=== PATIENT | male | born 1950 | race Caucasian/White ===

== ENCOUNTER → 2018-03-29 | Emergency (ER) | payer OTHER ==
[~2018-03-29] VITALS: Ht 182.9 cm; Wt 95.3 kg
[~2018-03-29] MED LIST: ALBUTEROL/IPRATROPIUM 3 ML NEB NEB ONE; AMLODIPINE BESYL5 MG PO; HYDROCODONE/APAP 5MG-325MG TAB PO NR; IOPAMIDOL 370 MG/ML 200 ML INFUS..BTL INJ ONE; LEVOFLOXACIN 750MG/D5W 150ML 150 ML IV SCH; METFORMIN HCL1000 MG PO; SODIUM CHLORIDE 0.9% 50ML 50 ML ONE; TAMSULOSIN HCL0.4 MG PO; VITAMIN D250000 UNIT PO
--- OUTSIDE RECORDS SUMMARY | 2018-03-29 12:01 | XMS REPORT | Continuity of Care Document ---
Author Author [facility] Organization [facility] Address [address] [place] [address] ;ext= Care Team Providers Care Hogshead Builder Name Role Phone HERRERAMARIELA Admphys MARIELA HERRERA [facility] Admission Diagnosis Code Admission Diagnosis Date [id number] Low back pain Social History Element Description Code Description Smoking Status Code System Start Date End Date Smoking Status [id number] Unknown if ever smoked SNOMED-CT Problems * No data in the system Medications SNOMED CT Description [id number] Drug Treatment Unknown Allergies * No Allergy Information Available Results Laboratory Results Order: CBC PLATELET AUTO DIFF Specimen Source: BLOOD Body Site: [facility] Test Result Flag Range Unit Date 25234-3 1Leukocytes^^corrected for nucleated erythrocytes:NCnc:Pt:Bld:Qn:Automated count 9.54 4.80-10.80 10^3/ul 01/18/2018 23:28 789-8 1Erythrocytes:NCnc:Pt:Bld:Qn:Automated count 4.56 L 4.70-6.10 10^6/ul 01/18/2018 23:28 718-7 1Hemoglobin:MCnc:Pt:Bld:Qn 12.7 L 14.0-18.0 gm/dl 01/18/2018 23:28 4544-3 1Hematocrit:VFr:Pt:Bld:Qn:Automated count 39.4 L 42.0-50.0 % 01/18/2018 23:28 787-2 1Erythrocyte mean corpuscular volume:EntVol:Pt:RBC:Qn:Automated count 86.4 80.0-94.0 fL 01/18/2018 23:28 785-6 1Erythrocyte mean corpuscular hemoglobin:EntMass:Pt:RBC:Qn:Automated count 27.9 27.0-31.0 pg 01/18/2018 23:28 786-4 1Erythrocyte mean corpuscular hemoglobin concentration:MCnc:Pt:RBC:Qn:Automated count 32.2 L 33.0-37.0 gm/dl 01/18/2018 23:28 788-0 1Erythrocyte distribution width:Ratio:Pt:RBC:Qn:Automated count 13.7 11.5-14.5 % 01/18/2018 23:28 777-3 1Platelets:NCnc:Pt:Bld:Qn:Automated count 257 130-400 10^3/ul 01/18/2018 23:28 21056-7 1Platelet mean volume:EntVol:Pt:Bld:Qn:Automated count 10.6 A 7.4-10.4 fL 01/18/2018 23:28 Note: 'NOT MEASURED' RESULTS ARE DISPLAYED WHEN THE INSTRUMENT HAS A SUPPRESSED OR UNREPORTABLE RESULT. THIS WILL MOST OFTEN HAPPEN WITH THE MPV WHEN THERE IS AN ABNORMAL PLATELET DISTRIBUTION DUE TO A CRITICAL LOW VALUE OR PLATELET CLUMPING. THE RDW MAY BE SUPPRESSED IF THERE ARE MULTIPLE PEAKS PRESENT ON THE RBC HISTOGRAM. IN THIS CASE, A MANUAL REVIEW OF THE SLIDE WILL BE PERFORMED, AND RBC MORPHOLOGY WILL BE NOTED ON THE REPORT. 770-8 1Neutrophils/100 leukocytes:NFr:Pt:Bld:Qn:Automated count 78.4 H 42.0-75.0 % 01/18/2018 23:28 736-9 1Lymphocytes/100 leukocytes:NFr:Pt:Bld:Qn:Automated count 12.4 L 13.0-42.0 % 01/18/2018 23:28 5905-5 1Monocytes/100 leukocytes:NFr:Pt:Bld:Qn:Automated count 6.5 4.0-14.0 % 01/18/2018 23:28 713-8 1Eosinophils/100 leukocytes:NFr:Pt:Bld:Qn:Automated count 2 1.0-5.0 % 01/18/2018 23:28 706-2 1Basophils/100 leukocytes:NFr:Pt:Bld:Qn:Automated count 0.3 0.0-3.0 % 01/18/2018 23:28 1IG% 0.4 0.0-0.4 % 01/18/2018 23:28 1NRBC, Auto 0 0-2 /100WBC 01/18/2018 23:28 * Performing Lab Footnotes:* [address] [place] [address] - [id number] - [address] [facility] [facility] [address] [facility] [place] [address] [facility] - MD: DIRECTOR FLAKITA BARKER Order: CMP COMPREHENSIVE METABOLIC PANEL Specimen Source: BLOOD Body Site: [facility] Test Result Flag Range Unit Date 2950-03 1Sodium:SCnc:Pt:Ser/Plas:Qn 140 137-145 mmol/l 01/18/2018 23:28 2823-3 1Potassium:SCnc:Pt:Ser/Plas:Qn 4 3.5-5.1 mmol/l 01/18/2018 23:28 5-0 1Chloride:SCnc:Pt:Ser/Plas:Qn 106 98-107 mmol/l 01/18/2018 23:28 74517-3 1Calcium:MCnc:Pt:Ser/Plas:Qn 8.6 8.5-10.1 mg/dl 01/18/2018 23:28 8-9 1Carbon dioxide:SCnc:Pt:Ser/Plas:Qn 26 21-32 mmol/l 01/18/2018 23:28 0-7 1Glucose:MCnc:Pt:Urine:Qn 145 H 74-106 mg/dl 01/18/2018 23:28 3094-0 1Urea nitrogen:MCnc:Pt:Ser/Plas:Qn 13 7.0-18.0 mg/dl 01/18/2018 23:28 2160-0 1Creatinine:MCnc:Pt:Ser/Plas:Qn 1.2 0.5-1.3 mg/dl 01/18/2018 23:28 2885-2 1Protein:MCnc:Pt:Ser/Plas:Qn 7.8 6.4-8.2 gm/dl 01/18/2018 23:28 1751-7 1Albumin:MCnc:Pt:Ser/Plas:Qn 3.1 L 3.4-5.0 gm/dl 01/18/2018 23:28 1A/G Ratio 0.7 L 1.1-2.2 % 01/18/2018 23:28 1920-8 1Aspartate aminotransferase:CCnc:Pt:Ser/Plas:Qn 11 L 15-37 U/L 01/18/2018 23:28 1742-6 1Alanine aminotransferase:CCnc:Pt:Ser/Plas:Qn 14 13-61 U/L 01/18/2018 23:28 6768-6 1Alkaline phosphatase:CCnc:Pt:Ser/Plas:Qn 97 45-117 U/L 01/18/2018 23:28 1975-2 1Bilirubin:MCnc:Pt:Ser/Plas:Qn 0.3 0.2-1.0 mg/dl 01/18/2018 23:28 1Globulin 4.7 H 2.3-3.5 gm/dl 01/18/2018 23:28 1Calcium, Corrected 9.3 8.4-10.2 mg/dl 01/18/2018 23:28 Note: Various formulas exist for corrected serum calcium results, each yielding different values. This corrected result was based on the formula: Corrected Calcium=SerumCalcium + [0.8 * ( 4 - SerumAlbumin)] 1EGFR if >60 mL/min/1.73m^2 01/18/2018 23:28 1EGFR if Non- >60 mL/min/1.73m^2 01/18/2018 23:28 Note: Estimated Glomerular Filtration Rate (eGFR) Reference Intervals Decision Points for 18 years and older and average body mass: >=60 Does not exclude kidney disease. 30 - 59 Suggests moderate chronic kidney disease and indicates the need for further investigation including assessment of proteinuria and cardiovascular factors. < 30 Usually indicates a need for referral for assessment and management of chronic kidney failure. * Performing Lab Footnotes:* [address] [place] [address] - [id number] - [address] [facility] [address] [place] [address] [address] Camejo MD: DIRECTOR FLAKITA BARKER Order: PROTIME PT INR Specimen Source: BLOOD Body Site: [facility] Test Result Flag Range Unit Date 5901-03 1Coagulation tissue factor induced:Time:Pt:PPP:Qn:Coag 11.1 9.0-11.9 seconds 01/18/2018 23:28 6301-6 1Coagulation tissue factor induced.INR:RelTime:Pt:PPP:Qn:Coag 1.1 0.9-1.1 01/18/2018 23:28 Note: INR results are intended ONLY to monitor Oral Anticoagulant therapy in stablized patients. The INR Therapeutic Range is 2.0 - 3.0 Patients with a mechanical heart, the INR Range is 2.5 - 3.5 * Performing Lab Footnotes:* [address] [place] [address] - [id number] - [address] [facility] [address] [place] [address] SOCRATES Camejo MD: DIRECTOR FLAKITA BARKER Order: PTT PARTIAL THROMBOPLASTIN TM Specimen Source: BLOOD Body Site: [facility] Test Result Flag Range Unit Date 06025-7 1Coagulation surface induced:Time:Pt:PPP:Qn:Coag 26.8 23.0-33.0 seconds 01/18/2018 23:28 * Performing Lab Footnotes:* [address] [place] [address] - [id number] - [address] [facility] [address] [place] [address] [facility] - MD: DIRECTOR FLAKITA BARKER Order: UA URINALYSIS WITH MICROSCOPY Specimen Source: URINE SPECIMENS Body Site: LOINC Test Result Flag Range Unit Date 5777-07 1Color:Type:Pt:Urine:Nom Red 01/18/2018 23:28 5767-9 1Appearance:Aper:Pt:Urine:Nom Cloudy 01/18/2018 23:28 2349-9 1Glucose:ACnc:Pt:Urine:Ord 100 A NEGATIVE 01/18/2018 23:28 5770-3 1Bilirubin:ACnc:Pt:Urine:Ord:Test strip Small A NEGATIVE 01/18/2018 23:28 2514-8 1Ketones:ACnc:Pt:Urine:Ord:Test strip TRACE A NEGATIVE 01/18/2018 23:28 5811-5 1Specific gravity:Rden:Pt:Urine:Qn:Test strip >=1.030 A 1.005-1.030 01/18/2018 23:28 5794-3 1Hemoglobin:ACnc:Pt:Urine:Ord:Test strip Large A NEGATIVE 01/18/2018 23:28 5803-2 1pH:LsCnc:Pt:Urine:Qn:Test strip 6.0 A 4.5-8.0 01/18/2018 23:28 47162-9 1Protein:ACnc:Pt:Urine:Ord:Test strip NEGATIVE NEGATIVE 01/18/2018 23:28 5818-0 1Urobilinogen:ACnc:Pt:Urine:Ord:Test strip 0.2 0.2 01/18/2018 23:28 5802-4 1Nitrite:ACnc:Pt:Urine:Ord:Test strip NEGATIVE NEGATIVE 01/18/2018 23:28 5799-2 1Leukocyte esterase:ACnc:Pt:Urine:Ord:Test strip NEGATIVE NEGATIVE 01/18/2018 23:28 5821-4 1Leukocytes:Naric:Pt:Urine sed:Qn:Microscopy.light.HPF None Seen A 0-5 01/18/2018 23:28 70432-1 1Erythrocytes:Naric:Pt:Urine sed:Qn:Microscopy.light.HPF 75-100 A 0-5 01/18/2018 23:28 59089-8 1Epithelial cells.squamous:Naric:Pt:Urine sed:Qn:Microscopy.light.HPF None Seen A 0-10 01/18/2018 23:28 8247-9 1Mucus:ACnc:Pt:Urine sed:Ord:Microscopy.light None Seen None Seen 01/18/2018 23:28 5769-5 1Bacteria:Naric:Pt:Urine sed:Qn:Microscopy.light.HPF Trace None Seen,Trace 01/18/2018 23:28 * Performing Lab Footnotes:* [address] [place] [address] [id number] - [address] [place] [address] [facility] - MD: DIRECTOR FLAKITA BARKER Radiology Results Order: [id number] CT ABDOMEN W/WO CONTRAST* Exam Completion Date:01/18/2018 00:50 Procedure: CT ABDOMEN AND PELVIS W/WO CONTRAST Order Date: 01/18/2018 12:50 AMOrdering Provider: MARIELA Vazquezinical Indication: [id number]: B lood in urineComparison: NoneTechnique: Using a helical scanner, sequential axi al imaging of the abdomen andpelvis were obtained following the administration o f oral contrast and beforeand after IV contrast. The exam extended from the leve l of the lung basessuperiorly to the level of the pubic symphysis inferiorly. De layed imagesthrough the renal collecting systems, ureters, and bladder were obta ined. 2-Dsagittal and coronal reconstructed images were obtained.This exam was performed according to the departmental dose-optimization programwhich includes automated exposure control, adjustment of the mA and/or kVaccording to patient s ize and/or use of iterative reconstruction techniques.Findings: Irregular, solid , noncalcified nodule in the posterior basilar segment of theright lower lobe me asuring 1.2 cm in diameter.5 mm calcified granuloma in the lateral basilar segme nt of the right lower lobe.The liver is normal in size and density. Hepatic cont our is normal. There are nohepatic masses. No intrahepatic ductal dilatation.The gallbladder is normal in size and density. There is no evidence ofcholelithiasis or cholecystitis by CT criteria.The spleen is normal in size and density. There are no intrinsic splenic masses.There is no evidence of a subcapsular hematoma or fluid collection.The pancreas is normal in size and density. There are no pa ncreatic masses.Multiple millimetric calcifications in the uncinate process, he ad, neck of thepancreas consistent with chronic pancreatitis.There is no pancrea tic ductal dilatation.The right adrenal gland has a normal appearance.There is a solid mass arising from the medial limb of the left adrenal glandwhich measures 1.8 cm in diameter.This has a precontrast Hounsfield density of 6, an immediate postcontrastHounsfield density of 50 in a delayed contrast density of 22.The ab solute washout is 63%. The relative washout is 56%.These values correlate with a benign adrenal adenoma.The right kidney is normal in size and shape. The renal cortical enhancement is normal. There are no calculi, masses, or hydronephrosis. Delayed images of the renal collecting system demonstrates no filling defectswi thin the collecting system. The ureter has a normal appearance without obstruct ion. The left kidney is enlarged with heterogeneous enhancement involving thein terpolar and inferior pole region. This is ill-defined but there is a morefocal hypodense area in the inferior pole which measures 4.7 x 5.8 x 5.3 cm inAP, cran iocaudad, and transverse dimensions.There is increased density within the left r enal pelvis and ureter consistentwith blood (hematuria).There is a filling defec t within the inferior division of the left renal vein atthe renal hilum suspicio us for tumor thrombus.There is no left renal calculus, ureteral calculus, or hyd ronephrosis.There is no soft tissue thrombus within the main left renal vein or IVC.The left renal vein is noted to be retroaortic. There is a Amin catheter wi thin the urinary bladder. The bladder is not welldistended and not well evaluate d.The prostate gland is normal in size. Aorta is normal in size and diameter. Th ere is no aneurysm. The IVC is normal insize and location.There is no lymphadeno yuliana in the abdomen, pelvis, or either inguinal region.There is no small or lar ge bowel distention. There is no bowel thickening. Thereare no inflammatory cates ges in the abdomen or pelvis.The appendix is visualized and normal in diameter. There is no periappendicealsoft tissue stranding. No CT findings of appendicitis .No inguinal masses.There is no skeletal lesion.IMPRESSION: 1. Heterogeneous enh ancement involving the interpolar and inferior pole regionof the left kidney wit h suspicion for a hypodense mass involving the inferiorpole. This measures 5.8 c m in maximum diameter. There is also suspicion fortumor thrombus within the infe rior division of the left renal vein at the hilum.The main left renal vein is pa tent without thrombus and is noted to beretroaortic in location. The IVC is free of tumor thrombus. Preliminary reportsuggested suspicion for pyelonephritis. Th is is not completely excluded from thedifferential diagnosis but is less likely considering the presence of tumorthrombus in the left renal vein at the hilum an d a right lower lobe pulmonarynodule suspicious for metastatic disease.2. Hyperd ensity within the left renal pelvis and ureter consistent withhematuria.3. Amin catheter decompresses the bladder which is not well evaluated.4. No abnormality involving the right kidney.5. 2 cm left adrenal adenoma.6. No other evidence for metastatic disease in the abdomen or pelvis.7. Preliminary report which did not suggest neoplasm was discussed by Dr. Antony Loredo to the emergency room provide r.8. I discussed the additional findings with Dr. Garcia in the emergency room onJanuary 20, 2018 at 11 AM. Recommend urology consultation.This final report w as electronically signed by Dr Chepe Mann MD 01/20/201811:31 AMDictated By: CHEPE MANNDate: 01/20/2018 11:31 Vital Signs * No data in the system Advance Directives Patient does NOT have Living Will Directive Type Effective Date Director [employer] Notes Supporting Document Name Address Phone No Directive Type specified 01/19/2018 11:15 Not Specified Not Specified Not Specified None No Family History * No Data Reported Plan of Care * No data in the system Procedures Code Code System Procedure Name Target Site Date of Procedure CT ABDOMEN W/WO CONTRAST 01/20/2018 11:38 99997 CPT4 PYELOTOMY W/REMOVAL CALCULUS Encounters Date Code Diagnosis Status (ICD10) - N059 UNS NEPHRIT SYND UNS MORPHOLOG [facility] Active Immunizations * No data in the system Functional Status * No data in the system Hospital Discharge Instructions * No data in the system
--- OUTSIDE RECORDS SUMMARY | 2018-03-29 12:01 | XMS REPORT ---
Author Author [facility] Address Unknown Phone Unavailable Care Team Providers Care Washer Engineer Helper Name Role Phone DENI HERRERA Unavailable Unavailable Problems This patient has no known problems. Allergies, Adverse Reactions, Alerts This patient has no known allergies or adverse reactions. Medications This patient has no known medications. Results Test Description Test Time Test Comments Text Results Atomic Results Result Comments CT ABDOMEN W/WO CONTRAST 2018-01-20 11:38:17 NPO 4 hours. Do not withhold meds Procedure: CT ABDOMEN AND PELVIS W/WO CONTRASTOrder Date: 01/18/2018 12:50 AMOrdering Provider: MARIELA HERRERAClinical Indication: [id number]: Blood in urineComparison: NoneTechnique: Using a helical scanner, sequential axial imaging of the abdomen andpelvis were obtained following the administration of oral contrast and beforeand after IV contrast. The exam extended from the level of the lung basessuperiorly to the level of the pubic symphysis inferiorly. Delayed imagesthrough the renal collecting systems, ureters, and bladder were obtained. 2-Dsagittal and coronal reconstructed images were obtained.This exam was performed according to the departmental dose-optimization programwhich includes automated exposure control, adjustment of the mA and/or kVaccording to patient size and/or use of iterative reconstruction techniques.Findings:Irregular, solid, noncalcified nodule in the posterior basilar segment of theright lower lobe measuring 1.2 cm in diameter.5 mm calcified granuloma in the lateral basilar segment of the right lower lobe.The liver is normal in size and density. Hepatic contour is normal. There are nohepatic masses. No intrahepatic ductal dilatation.The gallbladder is normal in size and density. There is no evidence ofcholelithiasis or cholecystitis by CT criteria.The spleen is normal in size and density. There are no intrinsic splenic masses.There is no evidence of a subcapsular hematoma or fluid collection.The pancreas is normal in size and density. There are no pancreatic masses.Multiple millimetric calcifications in the uncinate process, head, neck of thepancreas consistent with chronic pancreatitis.There is no pancreatic ductal dilatation.The right adrenal gland has a normal appearance.There is a solid mass arising from the medial limb of the left adrenal glandwhich measures 1.8 cm in diameter.This has a precontrast Hounsfield density of 6, an immediate postcontrastHounsfield density of 50 in a delayed contrast density of 22.The absolute washout is 63%. The relative washout is 56%.These values correlate with a benign adrenal adenoma.The right kidney is normal in size and shape.The renal cortical enhancement is normal.There are no calculi, masses, or hydronep hrosis.Delayed images of the renal collecting system demonstrates no filling defectswithin the collecting system.The ureter has a normal appearance without obstruction.The left kidney is enlarged with heterogeneous enhancement involving theinterpolar and inferior pole region. This is ill-defined but there is a morefocal hypodense area in the inferior pole which measures 4.7 x 5.8 x 5.3 cm inAP, craniocaudad, and transverse dimensions.There is increased density within the left renal pelvis and ureter consistentwith blood (hematuria).There is a filling defect within the inferior division of the left renal vein atthe renal hilum suspicious for tumor thrombus.There is no left renal calculus, ureteral calculus, or hydronephrosis.There is no soft tissue thrombus within the main left renal vein or IVC.The left renal vein is noted to be retroaortic.There is a Amin catheter within the urinary bladder. The bladder is not welldistended and not well evaluated.The prostate gland is normal in size.Aorta is normal in size and diameter. There is no aneurysm. The IVC is normal insize and location.There is no lymphadenopathy in the abdomen, pelvis, or either inguinal region.There is no small or large bowel distention. There is no bowel thickening. Thereare no inflammatory changes in the abdomen or pelvis.The appendix is visualized and normal in diameter. There is no periappendicealsoft tissue stranding. No CT findings of appendicitis.No inguinal masses.There is no skeletal lesion.IMPRESSION:1. Heterogeneous enhancement involving the interpolar and inferior pole regionof the left kidney with suspicion for a hypodense mass involving the inferiorpole. This measures 5.8 cm in maximum diameter. There is also suspicion fortumor thrombus within the inferior division of the left renal vein at the hilum.The main left renal vein is patent without thrombus and is noted to beretroaortic in location. The IVC is free of tumor thrombus. Preliminary reportsuggested suspicion for pyelonephritis. This is not completely excluded from thedifferential diagnosis but is less likely considering the presence of tumorthrombus in the left renal vein at the hilum and a right lower lobe pulmonarynodule suspicious for metastatic disease.2. Hyperdensity within the left renal pelvis and ureter consistent withhematuria.3. Amin catheter decompresses the bladder which is not well evaluated.4. No abnormality involving the right kidney.5. 2 cm left adrenal adenoma.6. No other evidence for metastatic disease in the abdomen or pelvis.7. Preliminary report which did not suggest neoplasm was discussed by Dr. Antony Loredo to the emergency room provider.8. I discussed the additional findings with Dr. Garcia in the emergency room onJanuary 20, 2018 at 11 AM. Recommend urology consultation.This final report was electronically signed by Dr Chepe Mann MD 01/20/201811:31 AMDictated By: CHEPE MANN.Date: 01/20/2018 11:31 CBC WITH AUTO DIFF 2018-01-19 11:43:00 WBC (test code=WBC) 9.54 10\\S\\3/ul 4.80-10.80 RBC (test code=RBC) 4.56 10\\S\\6/ul 4.70-6.10 Hemoglobin (test code=HGB) 12.7 gm/dl 14.0-18.0 Hematocrit (test code=HCT) 39.4 % 42.0-50.0 MCV (test code=MCV) 86.4 fL 80.0-94.0 MCH (test code=MCH) 27.9 pg 27.0-31.0 MCHC (test code=MCHC) 32.2 gm/dl 33.0-37.0 RDW (test code=RDWVC) 13.7 % 11.5-14.5 Platelet (test code=PLT) 257 10\\S\\3/ul 130-400 MPV (test code=MPV) 10.6 fL 7.4-10.4 "NOT MEASURED" RESULTS ARE DISPLAYED WHEN THE INSTRUMENT HAS A SUPPRESSED OR UNREPORTABLE RESULT. THIS WILL MOST OFTEN HAPPEN WITH THE MPV WHEN THERE IS AN ABNORMAL PLATELET DISTRIBUTION DUE TO A CR ITICAL LOW VALUE OR PLATELET CLUMPING. THE RDW MAY BE SUPPRESSED IF THERE ARE MULTIPLE PEAKS PRESENT ON THE RBC HISTOGRAM. IN THIS CASE, A MANUAL REVIEW OF THE SLIDE WILL BE PERFORMED, AND RBC MORPHOLOGY WILL BE NOTED ON THE REPORT. NE% (test code=NE) 78.4 % 42.0-75.0 LY% (test code=LY) 12.4 % 13.0-42.0 MO% (test code=MO) 6.5 % 4.0-14.0 EO% (test code=EO) 2.0 % 1.0-5.0 BA% (test code=BA) 0.3 % 0.0-3.0 IG% (test code=IG%) 0.4 % 0.0-0.4 NRBC, Auto (test code=NRBC_AUTO) 0 /100WBC 0-2 PT AND [id number] 11:43:00* Test Item Value Reference Range Comments Protime (test code=PT) 11.1 seconds 9.0-11.9 INR (test code=INR) 1.1 0.9-1.1 INR results are intended ONLY to monitor Oral Anticoagulant therapy in stablized patients. The INR Therapeutic Range is 2.0 - 3.0 Patients with a mechanical heart, the INR Range is 2.5 - 3.5 [id number] 11:43:00* Test Item Value Reference Range Comments aPTT (test code=PTT) 26.8 seconds 23.0-33.0 [id number] 11:41:00* Test Item Value Reference Range Comments Sodium (test code=NA) 140 mmol/l 137-145 Potassium (test code=K) 4.0 mmol/l 3.5-5.1 Chloride (test code=CL) 106 mmol/l 98-107 Calcium (test code=CALC) 8.6 mg/dl 8.5-10.1 CO2 (test code=CO2) 26 mmol/l 21-32 Glucose (test code=GLU) 145 mg/dl 74-106 BUN (test code=BUN) 13.0 mg/dl 7.0-18.0 Creatinine (test code=CREA) 1.2 mg/dl 0.5-1.3 T Protein (test code=TP) 7.8 gm/dl 6.4-8.2 Albumin (test code=ALB) 3.1 gm/dl 3.4-5.0 A/G Ratio (test code=AGRAT) 0.7 % 1.1-2.2 AST (SGOT) (test code=AST) 11 U/L 15-37 ALT (SGPT) (test code=ALT) 14 U/L 13-61 Alkaline Phos (test code=ALKP) 97 U/L 45-117 Total Bilirubin (test code=TBIL) 0.3 mg/dl 0.2-1.0 Globulin (test code=GLOBU) 4.7 gm/dl 2.3-3.5 Calcium, Corrected (test code=CALCCORR) 9.3 mg/dl 8.4-10.2 Various formulas exist for corrected serum calcium results, each yielding different values. This corrected result was based on the formula: Corrected Calcium=SerumCalcium + [0.8 * ( 4 - SerumAlbumin)] EGFR if (test code=EGFRAA) >60 mL/min/1.73m\\S\\2 EGFR if Non- (test code=EGFRNA) >60 mL/min/1.73m\\S\\2 Estimated Glomerular Filtration Rate (eGFR) Reference Intervals Decision Points for 18 years and older and average body mass: >=60 Does not exclude kidney disease. 30 - 59 Suggests moderate chronic kidney disease and indicates the need for further investigation including assessment of proteinuria and cardiovascular factors. < 30 Usually indicates a need for referral for assessment and management of chronic kidney failure. URINALYSIS WITH [id number] 11:26:00* Test Item Value Reference Range Comments Color (test code=UCOLR) Red Clarity (test code=UCLAR) Cloudy Glucose (test code=UGLUC) 100 NEGATIVE Bilirubin (test code=UBILI) Small NEGATIVE Ketones (test code=UKET) TRACE NEGATIVE Specific [place] (test code=USPGR) >=1.030 1.005-1.030 Blood (test code=UBLD) Large NEGATIVE PH (test code=UPH) 6.0 4.5-8.0 Protein (test code=UPROT) NEGATIVE NEGATIVE Urobilinogen (test code=U UROB) 0.2 >0.2 Nitrite (test code=UNITR) NEGATIVE NEGATIVE Leukocyte Esterase (test code=ULEUK) NEGATIVE NEGATIVE WBC (test code=WBCUR) None Seen 0-5 RBC (test code=RBCUR) 75-100 0-5 Epithial Cells (test code=U EPI) None Seen 0-10 Mucous (test code=UMUC) None Seen None Seen Bacteria (test code=UBACT) Trace None Seen,Trace
--- NOTE | 2018-03-29 12:29 | NUR ---
EKG DONE. RAMÓN SALINAS IN ROOM
[2018-03-29 12:51] LABS: BASOPHILS # (AUTO) 0.1 (0.0-0.1); BASOPHILS % 0.3 % (0.0-1.0); EOSINOPHILS # (AUTO) 0.1 (0.0-0.4); EOSINOPHILS % 0.5 % (0.0-6.0); HEMATOCRIT 30.1 % (38.2-49.6); LYMPHOCYTES # (AUTO) 1.3 (1.0-3.2); LYMPHOCYTES % 5.5 % (18.0-39.1); MEAN CORPUSCULAR HEMOGLOBIN 25.1 pg (28-32); MEAN CORPUSCULAR HGB CONC 30.6 g/dL (31-35); MONOCYTES # (AUTO) 1.7 (0.2-0.8); MONOCYTES % 7.1 % (4.4-11.3); NEUTROPHILS # (AUTO) 20.3 (2.1-6.9); NEUTROPHILS % 85.5 % (38.7-80.0); PLATELET COUNT 487 x10e3/uL (140-360); RED BLOOD COUNT 3.67 x10e6/uL (4.3-5.7); RED CELL DISTRIBUTION WIDTH 17.4 % (11.7-14.4)
[2018-03-29 12:53] LABS: HEMOGLOBIN 9.2 g/dL (14.0-18.0)
--- NOTE | 2018-03-29 13:12 | Diagnostic Imaging Report ---
EXAMINATION: CHEST SINGLE (NOT PORTABLE) INDICATION: Dyspnea. COMPARISON: None FINDINGS: TUBES and LINES: None. LUNGS: Lungs are moderately inflated. There are patchy opacities in the left retrocardiac region. High density nodular opacity projects at the right costophrenic angle. No evidence of pulmonary edema. PLEURA: Small left pleural effusion. No evidence of pneumothorax. HEART AND MEDIASTINUM: The cardiomediastinal silhouette is unremarkable. BONES AND SOFT TISSUES: No acute osseous abnormality. UPPER ABDOMEN: No free air under the diaphragm. IMPRESSION: Small left pleural effusion with patchy left retrocardiac opacity, which could represent atelectasis or pneumonia in the appropriate clinical context. Follow-up chest radiograph is recommended in 6-8 weeks to assess for resolution. Subcentimeter high density nodular opacity at the right costophrenic angle likely represents calcified granuloma. Signed by: Dr. Kevin Paniagua MD on 03/29/2018 1:08 PM
[2018-03-29 13:15] LABS: ALANINE AMINOTRANSFERASE 96 IU/L (0-55); ALBUMIN 2.2 g/dL (3.5-5.0); ALBUMIN/GLOBULIN RATIO 0.5 (0.8-2.0); ALKALINE PHOSPHATASE 216 IU/L (40-150); ANION GAP 16.2 mmol/L (8-16); BLOOD UREA NITROGEN 19 mg/dL (7-26); BUN/CREATININE RATIO 19 (6-25); CALCIUM 10.4 mg/dL (8.4-10.2); CARBON DIOXIDE 23 mmol/L (22-29); CHLORIDE 101 mmol/L (98-107); CREATINE KINASE 72 IU/L (30-200); CREATININE, SERUM 1.02 mg/dL (0.72-1.25); EST GLOMERULAR FILTRATION RATE > 60 ML/MIN (60-); GLUCOSE 121 mg/dL (74-118); MAGNESIUM 1.9 MG/DL (1.3-2.1); POTASSIUM 4.2 mmol/L (3.5-5.1); SODIUM 136 mmol/L (136-145)
[2018-03-29 13:28] LABS: INR 1.21; PROTHROMBIN TIME 16.4 seconds (11.9-14.5)
[2018-03-29 13:29] LABS: PARTIAL THROMBOPLASTIN TIME 40.5 seconds (23.8-35.5)
[2018-03-29 13:35] LABS: THYROID STIMULATING HORMONE 6.009 uIU/mL (0.350-4.940)
--- NOTE | 2018-03-29 15:21 | Diagnostic Imaging Report ---
EXAM: CT Chest WITH contrast - PE Protocol INDICATION: Shortness of breath, tachycardia. COMPARISON: None TECHNIQUE: Chest was scanned utilizing a multidetector helical scanner from the lung apex through the level of the diaphragm after administration of IV contrast. Thin section reconstructions were obtained with special concentration on the pulmonary arteries. Coronal and sagittal reformations were obtained. Pulmonary embolism protocol was performed. Dose modulation, iterative reconstruction, and/or weight based adjustment of the mA/kV was utilized to reduce the radiation dose to as low as reasonably achievable. IV CONTRAST: 100 cc of Isovue 370 RADIATION DOSE: Total DLP: 586.8 mGy*cm COMPLICATIONS: None FINDINGS: LINES/ TUBES: None. PULMONARY ARTERIES: The main pulmonary artery measures up to 2.7 cm. No filling defect is identified within the pulmonary arteries to the segmental level. LUNGS AND AIRWAYS: There is a right perihilar mass, measuring up to 4.6 x 3.6 x 4.2 cm (AP x TV x SI). There is associated right perihilar multifocal consolidative opacity. There are multiple bilateral pulmonary nodules, largest in the right lower lobe measuring up to 2.9 x 2.3 cm. Additional nodules include multiple right upper lobe nodules for example measuring up to 0.9 cm on image 49. Right middle lobe pulmonary nodule measures up to 1.1 cm on image 71 and left lower lobe pulmonary nodule measures up to 1.2 cm on image 71. A left upper lobe pulmonary nodule measures up to 0.7 cm on image 32. There is a calcified 0.7 cm granuloma in the right lower lobe. There are scattered paraseptal and centrilobular lungs emphysematous changes, most pronounced in the right upper lobe. PLEURA: There is a moderate left and small right pleural effusion. HEART AND MEDIASTINUM: The thyroid gland is normal. There are multiple enlarged mediastinal lymph nodes, for example measuring up to 2.1 cm short axis in the subcarinal location and 1.2 cm and paratracheal location. Confluent right perihilar mass is difficult to distinguish from adjacent lymphadenopathy. Right peribronchial/hilar lymph nodes measure up to 1.4 cm short axis. There is a moderate pericardial effusion. UPPER ABDOMEN: Limited contrast-enhanced views of the upper abdomen demonstrate thickening of the bilateral adrenal glands, measuring up to 1.6 cm on the left and 1.7 cm on the right, incompletely evaluated. There are enlarged perigastric/hepatogastric lymph nodes, measuring up to 1.1 cm short axis. BONES/SOFT TISSUES: No suspicious lytic or blastic lesions. No acute osseous abnormality. Degenerative changes of the visualized spine. IMPRESSION: No evidence of pulmonary embolism to the segmental pulmonary arteries. Right hilar/perihilar mass with multiple bilateral lung nodules, thoracic and upper abdominal lymphadenopathy, and thickening of bilateral adrenal glands. Findings are suspicious for primary lung malignancy with metastatic disease. Dedicated CT of the abdomen and pelvis is suggested for further evaluation. Moderate pericardial, moderate left, and small right pleural effusions. Multifocal consolidation in the right upper lobe adjacent to the mass could reflect post-obstructive pneumonitis/pneumonia. The above findings were discussed with Dr. Lam on 03/29/2018 at 3:15 PM, who responded indicating that the communication was understood. Signed by: Dr. Kevin Paniagua MD on 03/29/2018 3:17 PM
--- NOTE | 2018-03-29 15:37 | NUR ---
NOTIFIED [employer] TO INITIATE TRANSFER.
--- NOTE | 2018-03-29 16:23 | NUR ---
NOTIFIED [facility] FOR PATIENT TRANSPORT TO [facility],SPOKE WITH CARLA GUZMAN APPROX 30-45 MIN.
--- NOTE | 2018-03-29 16:26 | NUR ---
REPORT CALLED TO ROSINA,RN --[phone]; FOR THIS PATIENT TO GO TO [facility]. ACCEPTING PHYSICIAN IS DR. Arnulfo REYES.
== END | disposition short-term general hospital (02) ==
LOC: ER 11:58
DX: R06.00 Dyspnea, unspecified (principal); C34.01 Malignant neoplasm of right main bronchus; I31.3 Pericardial effusion (noninflammatory); J18.9 Pneumonia, unspecified organism; D64.9 Anemia, unspecified; E03.9 Hypothyroidism, unspecified; F17.210 Nicotine dependence, cigarettes, uncomplicated
CPT/HCPCS: 36415; 71045; 71260; 80053; 82550; 82553; 83605; 83735; 83880; 84443; 84484; 85025; 85379; 85610; 85730; 87040; 93005; 94640; 99284; Q9967